=== PATIENT | female | born 1995 | race Two or more races ===

== ENCOUNTER 2024-03-08 11:09 | Outpatient (CLI) | payer OTHER | END 2024-03-08 11:10 | disposition home or self-care (01) | LOC: PRENATAL 11:09 | PROVIDERS: ATTEND Obstetrics & Gynecology Maternal & Fetal Medicine | DX: O36.80X0 Pregnancy with inconclusive fetal viability, not applicable or unspecified (principal); Z36.82 Encounter for antenatal screening for nuchal translucency; Z36.9 Encounter for antenatal screening, unspecified ==